=== PATIENT | female | born 1980 | race Hispanic/Latino ===

== ENCOUNTER 2023-06-06 19:14 | Emergency (ER) | payer SELFPAY ==
[2023-06-06] MEDS ORDERED: Morphine 4 MG/ML VIAL ONE (21:04)
[2023-06-06] MEDS ORDERED: Ondansetron PF 4 MG/2 ML Vial ONE (21:04)
[2023-06-06] MEDS ORDERED: Lidocaine 1% PF 5 ML VIAL ONE (21:04)
[2023-06-06] MEDS ORDERED: Bacitracin 1 PK ONE (22:07)
== END 2023-06-06 22:37 | disposition home or self-care (01) ==
LOC: MADERS 19:14
DX: S62.307A Unspecified fracture of fifth metacarpal bone, left hand, initial encounter for closed fracture (principal); S00.83XA Contusion of other part of head, initial encounter; S00.93XA Contusion of unspecified part of head, initial encounter; S93.412A Sprain of calcaneofibular ligament of left ankle, initial encounter; S80.02XA Contusion of left knee, initial encounter; W01.0XXA Fall on same level from slipping, tripping and stumbling without subsequent striking against object, initial encounter
CPT/HCPCS: 26725; 70450; 70486; 72170; 96374; J2270; J2405